=== PATIENT | male | born 1995 | race Caucasian/White ===

== ENCOUNTER 2022-10-05 19:13 | Outpatient (CLI) | payer OTHER | END 2022-10-05 23:59 | disposition critical access hospital (66) | LOC: EMS 19:13 | DX: R42 Dizziness and giddiness (principal); R55 Syncope and collapse; I95.9 Hypotension, unspecified | CPT/HCPCS: A0425; A0427 ==

== ENCOUNTER 2022-10-05 19:18 | Emergency (ER) | payer OTHER ==
[2022-10-05 19:40] LABS: BASOPHILS % (AUTO) 0.5 %; EOSINOPHILS # (AUTO) 0.2 10^3/uL (0.0-0.7); EOSINOPHILS % (AUTO) 2.7 %; HCT - HEMATOCRIT 41.6 % (42.0-52.0); HGB - HEMOGLOBIN 13.7 g/dL (14.0-18.0); LYMPHOCYTES % (AUTO) 39.5 %; MEAN CORPUSCULAR HEMOGLOBIN 27.4 pg (27.0-31.0); MEAN CORPUSCULAR HGB CONC 32.9 g/dL (32.0-36.0); MEAN CORPUSCULAR VOLUME 83.2 fL (80.0-94.0); MEAN PLATELET VOLUME 9.8 fL (7.4-11.4); MONOCYTES # (AUTO) 0.6 10^3/uL (0.0-1.0); MONOCYTES % (AUTO) 8.1 %; NEUTROPHILS # (AUTO) 3.7 10^3/uL (1.5-6.6); NEUTROPHILS % (AUTO) 49.1 %; PLT - PLATELET COUNT 222 10^3/uL (130-450); RED CELL DISTRIBUTION WIDTH 13.3 % (12.0-15.0); WHITE BLOOD COUNT 7.5 x10^3/uL (4.8-10.8)
[2022-10-05 19:49] LABS: CALCIUM 8.7 mg/dL (8.5-10.3); CREATININE 1.2 mg/dL (0.6-1.2); POTASSIUM 3.4 mmol/L (3.5-5.0)
--- NOTE | 2022-10-05 19:50 | ED Physician Documentation ---
PD HPI SYNCOPE - Stated complaint Stated Complaint: DIAPHORETIC - Chief complaint Chief Complaint: General - History obtained from History obtained from: Patient - Additional information Additional information: 27-year-old gentleman diagnosed with KEENA last year takes 18 units of Lantus a day and is on a sliding scale, uses a CGM. He was in his usual state of health eating dinner tonight and started to feel presyncopal lasting 2 to 3 minutes. He thought he was hypoglycemic but his blood sugar was 150. He did not pass out. There is no associated chest pain or trouble breathing. When EMS arrived they found his blood pressure to be low, in the range of 60/30. At this point he feels asymptomatic. No recent dark or tarry stools, noted hematuria. No pedal edema or calf pain. PD PAST MEDICAL HISTORY - Past Medical History Past Medical History: Yes Cardiovascular: Hypertension, High cholesterol Endocrine/Autoimmune: Type 1 diabetes - Past Surgical History Past Surgical History: No - Present Medications Home Medications: Ambulatory Orders Medication Instructions Recorded Confirmed Atorvastatin [Lipitor] 10 mg ORAL DAILY 10/05/22 10/05/22 Insulin Aspart [NovoLOG] 5 unit SUBQ TIDWM 10/05/22 10/05/22 Insulin Glargine [Lantus Solostar] 18 unit SQ DAILY 10/05/22 10/05/22 Lisinopril [Zestril] 10 mg PO DAILY 10/05/22 10/05/22 - Allergies Allergies/Adverse Reactions: Allergies Allergy/AdvReac Type Severity Reaction Status Date / Time No Known Drug Allergies Allergy Verified 10/05/22 19:29 - Social History Does the pt smoke?: No Smoking Status: Never smoker Does the pt drink ETOH?: No Substance Use and Type: Marijuana - Immunizations Immunizations are current?: Yes PD ED PE NORMAL - Vitals Vital signs reviewed: Yes - General General: Alert and oriented X 3, No acute distress - Neck Neck: Supple, no meningeal sign, No bony TTP - Cardiac Cardiac: RRR, No murmur - Respiratory Respiratory: No respiratory distress, Clear bilaterally - Abdomen Abdomen: Non tender - Derm Derm: No rash - Extremities Extremities: No edema, No calf tenderness / cord - Neuro Neuro: Alert and oriented X 3, Normal speech Results - Vitals Vitals: Vital Signs - 24 hr 10/05/22 10/05/22 19:19 20:21 Temperature 36.4 C L Heart Rate 70 Heart Rate [ 82 Sitting] Heart Rate [ 86 Standing] Heart Rate [ 77 Supine] Respiratory 16 Rate Blood Pressure 127/73 Blood Pressure 139/74 H [Sitting] Blood Pressure 124/80 [Standing] Blood Pressure 119/62 [Supine] O2 Saturation 98 Oxygen O2 Source Room air - EKG (time done) 1922 EKG releavant findings:: EKG personally interpreted by author of this note. Relevant findings are: Rate: Rate (enter#) (73) Rhythm: NSR [place]: Normal Intervals: Normal GA QRS: Normal Ischemia: Normal ST segments - Labs Labs: Laboratory Tests 10/05/22 10/05/22 10/05/22 19:30 19:30 19:30 WBC 7.5 RBC 5.00 Hgb 13.7 L Hct 41.6 L MCV 83.2 MCH 27.4 MCHC 32.9 RDW 13.3 Plt Count 222 MPV 9.8 Neut # (Auto) 3.7 Lymph # (Auto) 3.0 Harmon # (Auto) 0.6 Eos # (Auto) 0.2 Baso # (Auto) 0.0 Absolute Nucleated RBC 0.00 Nucleated RBC % 0.0 Sodium 137 Potassium 3.4 L Chloride 102 Carbon Dioxide 27 Anion Gap 8.0 BUN 13 Creatinine 1.2 Estimated GFR (MDRD) 72 L Glucose 195 H POC Whole Bld Glucose 181 H Calcium 8.7 PD Medical Decision Making - ED course ED course: 27-year-old gentleman with transient hypotension at home. Orthostatics were negative here. CBC showing very mild anemia, BMP grossly normal with very mild hypokalemia and modest hyperglycemia in the setting of known diabetes. On further history, he was having a very stressful conversation when the hypotension and near syncope happened so presume this was a vasovagal episode but for close follow-up was advised. Departure - Departure Disposition: 01 Home, Self Care Clinical Impression: Transient hypotension, Near syncope Condition: Good Record reviewed to determine appropriate education?: Yes Instructions: ED Near Syncope Unkn Comments: The cause of your transient low blood pressure at home is unclear. Your labs here are relatively unremarkable save very mild anemia, only 0.3 point below normal and a blood sugar of 195. Orthostatic vital signs were negative/normal. Take it easy tonight and drink plenty of fluids. Call your doctor to arrange a follow-up appointment, make the next available appointment. In the interim, return anytime if worse or if new symptoms develop. Discharge Date/Time: 10/05/22 20:43
[2022-10-05 20:23] VITALS: BP 119/62
== END 2022-10-05 20:43 | disposition home or self-care (01) ==
LOC: ED 19:18
DX: R55 Syncope and collapse (principal); I95.9 Hypotension, unspecified
CPT/HCPCS: 36415; 80048; 85025; 93005; 99283; 99284